=== PATIENT | male | born 1985 | race Caucasian/White ===

== ENCOUNTER 2022-09-16 02:23 | Emergency (ER) | payer OTHER ==
[~2022-09-16] VITALS: Ht 172.7 cm; Wt 103.6 kg
[2022-09-16 02:53] VITALS: BP 114/75
[2022-09-16] MEDS ORDERED: acetaminophen 325mg tablet PO ONE (07:00)
[2022-09-16] MEDS ORDERED: AMOX-117 PO (08:40)
[2022-09-16] MEDS ORDERED: ACET650T58 PO (08:46)
== END 2022-09-16 09:21 | disposition home or self-care (01) ==
LOC: ER 02:25
DX: B34.9 Viral infection, unspecified (principal); J02.9 Acute pharyngitis, unspecified; Z20.822 Contact with and (suspected) exposure to COVID-19; H92.02 Otalgia, left ear; Z79.899 Other long term (current) drug therapy
CPT/HCPCS: 87081; 87502; 87503; 87811; 87880; 99283

== ENCOUNTER 2025-04-05 05:31 | Emergency (ER) | payer OTHER ==
[~2025-04-05] VITALS: Ht 172.7 cm; Wt 238.0 kg
[2025-04-05 05:43] VITALS: TEMP 97.7
[2025-04-05] MEDS: ondansetron/PF 4mg/2ml inj IV ONE (06:04)
[2025-04-05] MEDS: morphine 4 MG/ML inj SYRINge IV ONE (06:06)
[2025-04-05] MEDS: ketorolac trometh 15mg/ml vial 15 MG/ML ML IV ONE (06:12)
--- NOTE | 2025-04-05 06:16 | Physician Documentation ---
History of Present Illness General Chief Complaint: Abdominal Pain Stated Complaint: ABDOMINAL PAIN Time Seen by MD: 06:02 Mode of Arrival: POV History of Present Illness Initial Comments Patient is a 39-year-old male who states he developed sudden onset back pain and stomach region pain round 10:00 p.m. last night. Patient states he has can not find a comfortable position. Patient states pain is constant and severe in nature. The patient states he vomited 3 times. He denies any diarrhea. Medication Reconciliation Allergies: Coded Allergies: No Known Allergies (Unverified , 09/16/22) Scheduled PRN Hydrocodone Bit/Acetaminophen (Hydrocodone-Apap 10-325 Tablet), 1 TABLET PO Q8H PRN for pain ONDANSETRON ODT 4mg tablet (Ondansetron Odt), 1 TABLET PO Q6H PRN for nause a/vomiting Past Medical History Past Medical History: No Pertinent History Past Surgical History: no surgical history Drug Use: none Lives In: Home Review of Systems All Other Systems at this time: Reviewed and Negative Physical Exam Physical Exam Vital Signs: Temperature: 97.7, Heart Rate: 74, Respiratory Rate: 19, BP: 159/105, Pulse Oximetry: 97, Weight: 238.000 Oxygen Flow Rate: 0 Physical Exam VITALS: Reviewed and as above. GENERAL: Alert, mild distress secondary to pain HEENT: Normocephalic, atraumatic, PERRL, EOMI, dry mucosa, no erythema RESPIRATORY: Lungs clear, normal breath sounds, no respiratory distress. CHEST: No accessory muscle use, no retractions CV: Regular rate, rhythm, no edema, no murmur, No: JVD GI: Soft, non-tender, bowels sounds present, no rebound, guarding, or rigidity BACK: No CVA tenderness, or swelling MUSCULOSKELETAL: No deformities, no edema SKIN: Warm and dry, no rash NEURO: Oriented x4, No motor or sensory deficit PSYCH: Normal mood and affect, no agitation Progress Results/Orders Results/Orders Orders - OHLSHADY OSCAR MD Ct Abdomen Pelvis (04/05/25 06:51) Ultrasound Of Abdomen (04/05/25 07:31) Completed Orders - SHADY DOS SANTOS MD Ketorolac Trometh 15mg/Ml Vial (Toradol (04/05/25 06:10) Ct Abdomen Pelvis (04/05/25 06:51) Mag & Alum Hydrox/Simeth Susp (Maalox Or (04/05/25 07:05) Lidocaine 2% Viscous (Xylocaine 2% Visco (04/05/25 07:05) Ultrasound Of Abdomen (04/05/25 07:31) Vital Signs 04/05/25 04/05/25 04/05/25 04/05/25 05:43 05:59 06:06 06:12 Temp 97.7 Pulse 74 Resp 18 20 19 B/P (MAP) 159/105 Pulse Ox 97 O2 Flow Rate 0 04/05/25 04/05/25 04/05/25 06:14 08:48 08:52 Pulse 68 65 Resp 19 12 B/P (MAP) 163/101 (121) 134/96 Pulse Ox 100 97 O2 Flow Rate 0 Laboratory Tests Test 04/05/25 05:57 White Blood Count 10.7 Red Blood Count 4.67 L Hemoglobin 15.5 Hematocrit 42.3 Mean Corpuscular Volume 89.7 Mean Corpuscular Hemoglobin 32.3 H Mean Corpuscular Hemoglobin Concent 36.1 Red Cell Distribution Width 12.7 Platelet Count 226 Mean Platelet Volume 9.5 Neutrophils (%) (Auto) 57.6 Lymphocytes (%) (Auto) 34.5 Monocytes (%) (Auto) 6.1 Eosinophils (%) (Auto) 1.0 Basophils (%) (Auto) 0.8 Neutrophils # (Auto) 6.1 Lymphocytes # (Auto) 3.7 Monocytes # (Auto) 0.6 Eosinophils # (Auto) 0.1 Basophils # (Auto) 0.1 CBC Comment Sodium Level 140 Potassium Level 3.9 Chloride Level 103 Carbon Dioxide Level 23.7 L Anion Gap 13 Blood Urea Nitrogen 18 Creatinine 1.14 H Estimated GFR/1.73 m2 71 BUN/Creatinine Ratio 15.8 Glucose Level 159 H Calcium Level 8.1 L Total Bilirubin 0.7 Aspartate Amino Transf (AST/SGOT) 29 Alanine Aminotransferase (ALT/SGPT) 20 Alkaline Phosphatase 72 Total Protein 8.1 Albumin 4.1 Globulin 4.0 Albumin/Globulin Ratio 1.0 L Lipase 33 Chemistry Comments Medical Decision Making Additional information obtaine: old records Findings 39-year-old male who presented with abdominal pain right-sided flank region pain the patient was extremely and comfortable he was having difficulty finding a comfortable position my initial thoughts was he probably had renal colic, the CT imaging of his abdomen showed some gallstones and no evidence of kidney stone. The patient was treated with pain medication IV fluids in the emergency department. An ultrasound demonstrated he has gallstones and he has a an immobile stone stuck near the neck of the gallbladder. The patient was offered admission for further evaluation and possible cholecystectomy his pain improved in the emergency department he will be discharged with instructions to follow up as an outpatient and short course of pain medication he has been advised if he develops fevers or worsening of his pain that he should return he has been given the name of the surgeon as well. The patient's CT imaging was reviewed by me his ultrasound imaging has also been reviewed by me as pulse oximetry was interpreted as normal and adequate in his previous hospitalizations has been reviewed. The patient's court monitor was interpreted as a sinus rhythm Differential Diagnosis Biliary colic, renal colic, gastritis, colitis Departure Impression: Primary Impression: Biliary colic Additional Impression Text Use ibuprofen for mild pain, 600 mg every 6 hours, you can take [place] for more severe pain. Return for worsening of your symptoms or if you develop fevers. Follow up with the surgeon as soon as possible Discharge Instructions: Cholelithiasis Referrals: NO PRIMARY CARE PROVIDER (PCP) KIMBERLYN CARRASCO MD Prescriptions ONDANSETRON ODT 4mg tablet (ONDANSETRON ODT) 4 Mg Tab.rapdis 1 TABLET PO Q6H PRN for nausea/vomiting, #12 TABLET Prov: SHADY DOS SANTOS MD 04/05/25 Hydrocodone Bit/Acetaminophen (Hydrocodone-Apap 10-325 Tablet) 10mg/325mg Tablet 1 TABLET PO Q8H PRN for pain, #8 TABLET Prov: SHADY DOS SANTOS MD 04/05/25 Signature Scribe Signature: no scribe Attestation: The note accurately reflects work and decisions made by me.Shady Dos Santos MD 04/06/25 07:56 SHADY DOS SANTOS MD Apr 05, 2025 06:16
[2025-04-05 06:24] LABS: CREATININE 1.14 MG/DL (0.60-1.10); TOTAL CARBON DIOXIDE 23.7 MMOL/L (24-32); eCRCL 83 ML/MIN; eGFR 71 ML/MIN
[2025-04-05] MEDS: mag hydrox/Alum hydrox/simeth 30ml oral suspension PO ONE (07:25)
[2025-04-05] MEDS: LIDOcaine 2% Viscous 15ml cup MM ONE (07:25)
--- NOTE | 2025-04-05 07:25 | RADIOLOGY REPORT ---
Exam: CT CT ABDOMEN PELVIS History: Pain. Comparison Study: None. Technique: Multidetector spiral CT of the abdomen and pelvis was performed from lung bases to pubic symphysis. Imaging was performed without intravenous contrast. Coronal and sagittal multiplanar reformats were obtained from the axial data set by the technologist. Radiation Dose : 1. Abdomen/Pelvis: CTDIvol 31.9 mGy, DLP 1724.97 mGy*cm. Findings: Evaluation of vasculature and solid organs is limited due to lack of intravenous contrast use. Lung Bases: Lung bases are clear. Visualized portions of the heart and pericardium are unremarkable. Liver: The liver is normal in size. No focal lesions. Gallbladder and Biliary Tree: The gallbladder contains sludge or multiple small gallstones. No intrahepatic or extrahepatic biliary ductal dilatation. Spleen: Unremarkable Pancreas: The pancreas is grossly unremarkable. Adrenal Glands: There is a 1.8 cm low-density right adrenal nodule. The left adrenal is unremarkable. Kidneys: Kidneys are unremarkable without calculi or hydronephrosis. GI tract: The stomach is grossly normal in appearance. No evidence of small bowel wall thickening or abnormal dilatation to suggest bowel obstruction. The colon is unremarkable. The appendix is lysed and is normal. Peritoneum/mesentery/retroperitoneum. No evidence of free intraperitoneal air. No ascites. No evidence of suspicious lymphadenopathy. Abdominal Wall: Status post hernia repair in the ventral abdominal wall. There is a fat containing umbilical hernia. Vasculature: The visualized abdominal aorta is normal in size and caliber. Evaluation of abdominal and pelvic vessels is limited due to lack of intravenous contrast. Urinary Bladder: Grossly unremarkable for degree of distention. Pelvic Organs: Unremarkable Musculoskeletal: No aggressive focal bony lesions, acute fractures or dislocation. IMPRESSION: 1. No acute abdominal or pelvic findings. 2. Cholelithiasis. 3. 1.8 cm right adrenal nodule., likely an adenoma.
[2025-04-05 07:37] LABS: MEAN PLATELET VOLUME 9.5 FL (7.4-10.4); RED CELL DISTRIBUTION WIDTH 12.7 % (11.5-14.5)
[2025-04-05] MEDS ORDERED: HYDR-3973 PO (08:42)
[2025-04-05] MEDS ORDERED: ONDA-243 PO (08:42)
[2025-04-05 08:52] VITALS: BP 134/96; PULSE 65; RESP 12; O2SAT 97
--- NOTE | 2025-04-05 11:07 | RADIOLOGY REPORT ---
Technique: Real-time ultrasound imaging of the abdomen was performed with grayscale and color Doppler. Indication: abd pain Comparison: None Findings: Liver measures 18.9 cm. It is increased in echogenicity and echotexture without focal mass. Portal vein is normal in caliber and demonstrates normal hepatopetal flow. Gallbladder demonstrates cholelithiasis and sludge. There is no pericholecystic fluid. The wall thickness is normal. The common bile duct measures 6 mm. No intrahepatic biliary ductal dilatation. The right kidney measures 10.4 cm. No hydronephrosis or sonographic evidence of nephrolithiasis. The visualized portion of the pancreas is unremarkable. The visualized portion of the IVC is unremarkable. Impression: Cholelithiasis and gallbladder sludge Echogenic liver which can be seen with hepatic steatosis, cirrhosis. Hepatomegaly
== END 2025-04-05 09:31 | disposition home or self-care (01) ==
LOC: ER 05:32
DX: K80.50 Calculus of bile duct without cholangitis or cholecystitis without obstruction (principal)
CPT/HCPCS: 36415; 74176; 76700; 80053; 83690; 85025; 96374; 96375; 99285; J1885; J2270; J2405